=== PATIENT | female | born 1980 | race Caucasian/White ===

== ENCOUNTER 2024-01-08 12:06 | Emergency (ER) | payer BC, SELFPAY ==
[2024-01-08 12:09] VITALS: BP 143/87
[2024-01-08 12:25] LABS: % Basophils 0.5 % (0-2); % Immature Granulocytes 0.4 % (0-0.5); % Lymphocytes 8.9 % (20.5-51.1); % Neutrophils 86.2 % (42.2-75.2); Absolute Basophils 0.1 10^3/uL (0-0.2); Absolute Monocytes 0.4 10^3/uL (0.1-0.6); Absolute Neutrophils 9.2 10^3/uL (1.4-6.5); Hemoglobin 15.1 g/dL (12.0-16.0); Mean Corp Hgb Conc. 36.8 g/dL (33.0-37.0); Mean Corpuscular Hgb 30.6 pg (27.0-31.0); Mean Corpuscular Volume 83.2 fL (81.0-99.0); Mean Platelet Volume 10.8 fL (7.4-10.4); Nucleated Red Blood Cells % 0 %; Platelet Count 191 10^3/uL (130-400); Red Blood Cell Count 4.93 10^6/uL (4.20-5.40); Red Cell Dist. Width 12.2 % (11.5-14.5); White Blood Cell Count 10.7 10^3/uL (4.8-10.8)
[2024-01-08 12:35] LABS: ALT (SGPT) 28 U/L (0-35); AST (SGOT) 41 U/L (14-36); Albumin 4.6 g/dl (3.5-5.0); Alkaline Phosphatase 56 U/L (38-126); Blood Urea Nitrogen 15 mg/dl (7-17); Calcium 9.3 mg/dl (8.4-10.2); Carbon Dioxide 25 mmol/L (22-30); Chloride 105 mmol/L (98-107); Glucose 102 mg/dl (70-99); Sodium 136 mmol/L (135-145); Total Bilirubin 0.8 mg/dl (0.2-1.3); Total Protein 6.8 g/dl (6.3-8.2); eGFR > 60.00
--- NOTE | 2024-01-08 14:38 | ED.GENMED ---
History of Present Illness
General
Chief Complaint: Fainting/Passed Out
Source: patient
Exam Limitations: none
Time Seen by Provider: 01/08/24 13:51
Nursing documentation reviewed up to this point in time: agreed with
Travel History
Have you had any contact with someone who has COVID-19?: No
Do you have any symptoms of coronavirus? Fever > 100 degrees, chills, cough, shortness of breath, sore throat, loss of taste or smell, muscle aches, or headache?: No
History of Present Illness
History of Present Illness:
43-year-old female presents to the ER for evaluation of syncopal episode. Patient reports this morning at 5 AM she sat up in bed felt a tingling sensation in her head and then did not feel right. Her partner reports she set up and stated that she
did not feel well then leaned forward and became unresponsive. She was breathing but not responding. Partner reports patient did not have a seizure but her face looked like it was in pain. This lasted about 50 seconds. Patient responds after 50
seconds into breakdowns or cold sweat.
She denies any seizure activity.
Patient reports she has a history of syncope in the past she has been evaluated by neurology she was told that she was not having seizures. She does describe EEG was done. Patient reports has been here previously in the past for syncope. Review
of records patient had a brain MRI dating back to 2014 for syncope concern for seizure.
Pt reports she also has had full workup by cardiology and even had a Holter monitor with normal workup
Patient was just here December 21 several weeks ago for syncopal episode.
Past History
Past History
ED Past Medical History: Other (Hepatitis C)
ED Past Surgical History: Other; Negative Cardiac
Social History
Tobacco: Non-smoker
Drug: Former user
Personal:
Living: with family
Employment: Employed
Family History
Family History: Negative Sudden
Review of Systems
Review of Systems
Allergies reviewed?: Yes
All Other Systems: ROS reviewed and negative except as documented in HPI and ROS
Constitutional: Reports no symptoms
Cardiac: Reports syncope; Denies diaphoresis
ABD/GI: Reports no symptoms
: Reports no symptoms
Musculoskeletal: Reports no symptoms
Skin: Reports no symptoms
Neurological: Reports no symptoms
Psychiatric: Reports no symptoms
Phy Exam
General Physical Exam
General Presentation: no apparent distress
General age: appears stated age
General Skin: warm and dry
General Habitus: normal
General Mental: alert
General Hydration: appears well hydrated
Cardiovascular Exam
Cardiovascular Exam: regular rate/rhythm, no murmur and normal peripheral pulses
Pulmonary Exam
Pulmonary Exam: lungs clear and no respiratory distress
Neurological Exam
Neurological Exam: alert, oriented x3, no motor deficits, normal reflexs and speech normal
[place] Coma Scale
Eye Opening: Spontaneous
Verbal Response: Oriented
Motor Response: Obeys Commands
GCS Total Score: 15
Musculoskeletal Exam
Musculoskeletal Exam: full ROM
Skin Exam
Skin Exam: normal color and warm/dry
Psychiatric Exam
Psychiatric Exam: normal mood/affect
Course
Orders/Labs/Results
Orders:
Orders
01/08/24 12:11
Electrocardiogram (*1) Urgent
Reason for Study: Syncope
EKG- Treatment ONCE
01/08/24 12:17
CBC/With Diff [Complete Blood Count/With Diff] Urgent
Comprehensive Metabolic Panel Urgent
HCG, Serum Qualitative Screen Urgent
01/08/24 14:20
Add On- LAB Urgent
Tests Added?: serum hcg qualitative
01/08/24 14:43
Orthostatic VS- Treatment ONCE
01/08/24 16:05
CT Head W/o Iv Contrast Urgent
Comment:
Reason For Exam: syncope
Abnormal Lab Results
01/08/24
12:17
MPV 10.8 H fL
(7.4-10.4)
Absolute Neuts (auto) 9.2 H 10^3/uL
(1.4-6.5)
Absolute Lymphs (auto) 1.0 L 10^3/uL
(1.2-3.4)
Neutrophils % 86.2 H %
(42.2-75.2)
Lymphocytes % 8.9 L %
(20.5-51.1)
Glucose 102 H mg/dl
(70-99)
AST 41 H U/L
(14-36)
01/08/24 12:17
01/08/24 12:17
Vital Signs
Initial and Last Documented VS:
Initial Vital Signs
Temp Pulse Resp BP Pulse Ox
98.2 F 71 18 143/87 98
01/08/24 12:09 01/08/24 12:09 01/08/24 12:09 01/08/24 12:09 01/08/24 12:09
Last Documented Vital Signs
Temp Pulse Resp BP Pulse Ox
98.2 F 75 18 110/78 99
01/08/24 12:09 01/08/24 18:42 01/08/24 12:09 01/08/24 18:42 01/08/24 18:42
MDM/Problems Addressed
Differential Diagnosis Includes:
not limited to seizure, syncope
MDM/Problems Addressed:
Patient is a 43-year-old female who has had history of syncope for years. Patient was evaluated by neurology as well as cardiology. Patient presented today for an episode of syncope witnessed by partner. This lasted for 50 seconds. This happened
earlier this morning patient felt that she had to lay in bed after episode. Partner did drive patient here to the ER. She presents awake alert no acute distress stable vital signs nontachypneic nontachycardic afebrile nonhypoxic with sorry normal
labs.
Patient is requesting CAT scan. Patient was seen here for similar episode December 12 did not have imaging at that time will CT however plan for discharge home discussed still close outpatient follow with neurology for continued evaluation.
Patient last had echo in 2014 will DC back to cardiology as well. I did review this echo which was unremarkable
*Radiology
Radiology exam reviewed: radiology read reviewed (Verbally reported via [place] text no significant interval change MRI more sensitive to compare previous findings in 2015)
*Pulse Oximetry
Patient hypoxic: no
*EKG
Interpreted by ED Provider?: Yes
Interpretation: normal
Heart Rate: 63
Rate: normal
Rhythm: sinus
Ischemia: no ischemia
*Critical Care Note
Total Time (30-74mins, 75-104mins- exclusive of procedures): Not Applicable
ED Attending Note
-
Portions of this chart may have been created with voice recognition software.� Occasional wrong word or��sound alike� substitutions may have occurred due to the inherent limitations of voice recognition software.
Discharge Plan
Departure
Patient Disposition: Home (Routine Discharge)
Date of Disposition: 01/08/24
Time of Disposition: 18:33
Patient with high blood pressure during this ER visit?: Yes
Condition: Fair
Covid-19: Not Applicable
Discharge Problem:
Syncope
Instructions: Syncope (Fainting) (DC), BLOOD PRESSURE
Prescriptions:
No Action
No Current Medications
0
Referrals:
Elgin Sherwood MD [Active] -
Mehrdad Perez DO [Active] -
Leighton Arredondo MD [Family Provider] -
Activity Restrictions/Additional Instructions:
As discussed please follow-up with your family doctor but again neurology and cardiology for continued evaluation of syncope. Stay well-hydrated and return if any worsening of symptoms
Interventions
Interventions:
*Risk Screen - Suicide Last Done: 01/08/24 14:38
*General Assessment Last Done: 01/08/24 14:38
*Neglect/Abuse Screening Last Done: 01/08/24 14:38
ED- Fall Risk Assessment Last Done: 01/08/24 14:38
*ED COVID-19 Vaccine History Last Done: 01/08/24 14:38
*Nursing Disposition Last Done: 01/08/24 18:42
ED- Neurological Assessment Last Done: 01/08/24 14:38
Discharge Date and Time
Discharge Date/Time: 01/08/24 18:43
[2024-01-08 14:42] VITALS: BP 106/81; BP 110/74; BP 113/74; PULSE 59; PULSE 61
[2024-01-08 14:52] LABS: HCG, Serum Qualitative Screen Negative
[2024-01-08 16:13] VITALS: BP 112/69
[2024-01-08 18:42] VITALS: BP 110/78
== END 2024-01-08 18:43 | disposition home or self-care (01) ==
LOC: EMR 12:06
PROVIDERS: EMERGENCY PHYSICIAN Emergency Medicine; FAMILY PHYSICIAN Family Medicine
DX: R55 Syncope and collapse (principal); R03.0 Elevated blood-pressure reading, without diagnosis of hypertension; Z86.19 Personal history of other infectious and parasitic diseases; Z86.14 Personal history of Methicillin resistant Staphylococcus aureus infection; Z88.8 Allergy status to other drugs, medicaments and biological substances
CPT/HCPCS: 99284; 70450; 80053; 84703; 85025; 93005

== ENCOUNTER → 2024-04-03 19:43 | Outpatient (REF) | payer BC, SELFPAY | LOC: WDC 19:43 | PROVIDERS: ATTENDING PHYSICIAN Family Medicine | DX: Z12.31 Encounter for screening mammogram for malignant neoplasm of breast (principal) | CPT/HCPCS: 77063; 77067 ==

== ENCOUNTER 2024-04-20 05:19 | Emergency (ER) | payer BC, SELFPAY ==
[2024-04-20 05:20] VITALS: BMI 29.3
[2024-04-20 05:31] VITALS: BP 133/79
[2024-04-20 06:21] VITALS: BP 106/73
[2024-04-20 06:49] LABS: % Basophils 0.4 % (0-2); % Eosinophils 1.1 % (0-6); % Immature Granulocytes 0.6 % (0-0.5); % Lymphocytes 9.6 % (20.5-51.1); % Monocytes 6.8 % (1.7-9.3); % Neutrophils 81.5 % (42.2-75.2); Absolute Eosinophils 0.1 10^3/uL (0-0.7); Absolute Immature Granulocytes 0.1 10^3/uL (0-0.05); Absolute Lymphocytes 0.9 10^3/uL (1.2-3.4); Absolute Monocytes 0.6 10^3/uL (0.1-0.6); Absolute Neutrophils 7.3 10^3/uL (1.4-6.5); Hematocrit 36.5 % (37.0-47.0); Hemoglobin 12.9 g/dL (12.0-16.0); Mean Corp Hgb Conc. 35.3 g/dL (33.0-37.0); Mean Corpuscular Hgb 30.6 pg (27.0-31.0); Mean Corpuscular Volume 86.5 fL (81.0-99.0); Mean Platelet Volume 10.7 fL (7.4-10.4); Nucleated Red Blood Cells % 0 %; Platelet Count 168 10^3/uL (130-400); Red Blood Cell Count 4.22 10^6/uL (4.20-5.40); Red Cell Dist. Width 12.4 % (11.5-14.5); White Blood Cell Count 8.9 10^3/uL (4.8-10.8)
[2024-04-20 07:00] VITALS: BP 101/74
[2024-04-20 07:08] LABS: HCG, Serum Qualitative Screen Negative
[2024-04-20 07:15] VITALS: BP 115/81
[2024-04-20] MEDS: NSS 1000 IV (07:16)
[2024-04-20 07:17] LABS: Troponin I < 0.012 ng/ml
[2024-04-20 07:19] LABS: ALT (SGPT) 25 U/L (0-35); AST (SGOT) 39 U/L (14-36); Albumin 3.8 g/dl (3.5-5.0); Alkaline Phosphatase 50 U/L (38-126); Blood Urea Nitrogen 25 mg/dl (7-17); Calcium 9.1 mg/dl (8.4-10.2); Carbon Dioxide 24 mmol/L (22-30); Chloride 106 mmol/L (98-107); Estimated Creatinine Clearance 85 ml/min; Glucose 96 mg/dl (70-99); Potassium 4.4 mmol/L (3.5-5.1); Sodium 137 mmol/L (135-145); Total Bilirubin 0.7 mg/dl (0.2-1.3); Total Protein 5.8 g/dl (6.3-8.2); eGFR > 60.00
[2024-04-20 07:38] LABS: TSH Reflex To Free T4 5.62 uIU/ml (0.47-4.68)
[2024-04-20 07:42] LABS: D-Dimer 0.85 ug/mlFEU (0.00-0.50)
--- NOTE | 2024-04-20 07:49 | EDRN ---
D-dimer came back elevated, this RN notified Dr. Diaz, the pt stated to this RN that she has a neurology appt that she needs to go to at 0845 and that she wants to leave now, the pt requested that her PIV be taken out, this RN removed PIV
--- NOTE | 2024-04-20 07:55 | EDRN ---
the pt approached this RN at the nurses station with her and stated, 'I am just going to get going, i have had the discharge paper work before so i'm fine thank you for the care', this RN notified Dr. Gonzalez
--- NOTE | 2024-04-20 08:32 | ED.GENMED ---
History of Present Illness
General
Chief Complaint: Fainting/Passed Out
Source: patient, records and family
Exam Limitations: none
Time Seen by Provider: 04/20/24 06:22
Nursing documentation reviewed up to this point in time: agreed with
Travel History
Have you had any contact with someone who has COVID-19?: No
Do you have any symptoms of coronavirus? Fever > 100 degrees, chills, cough, shortness of breath, sore throat, loss of taste or smell, muscle aches, or headache?: No
History of Present Illness
History of Present Illness:
Patient is a 43-year-old female who presents after syncopal episode today. Patient has had recurrent syncope with episodes recently in November and December. Patient has an appointment with neurology at 845 this morning. Patient states that she
woke this morning and had generalized abdominal pain and she went into the bathroom sat and started to urinate and then passed out. Patient was incontinent further of urine. After coming to the patient did have a large bowel movement. Patient
admits to diaphoresis and nausea with the episode but has not had any recent nausea, vomiting or diarrhea. Patient's period was about a year ago. Patient denies any weight changes, skin or hair changes. Patient denies any recent fevers chills
illnesses or injuries. Patient denies any upper respiratory type symptoms. Patient denied any chest pain, shortness of breath or palpitations. Patient's had an echo, Holter, EEG and MRI all of which have been normal.
Past History
Past History
ED Past Medical History: Other (Hepatitis C, recurrent syncope)
ED Past Surgical History: Other; Negative Cardiac
Social History
Tobacco: Non-smoker
Drug: Former user
Personal:
Living: with family
Employment: Employed
Family History
Family History: Negative Sudden
Review of Systems
Review of Systems
All Other Systems: ROS reviewed and negative except as documented in HPI and ROS
Constitutional: Reports no symptoms
EENT: Reports no symptoms
Respiratory: Reports no symptoms
Cardiac: Reports diaphoresis and syncope; Denies chest pain or palpitations
ABD/GI: Reports abdominal pain and nausea; Denies vomiting, diarrhea, constipated, bloody stools, black stools or anorexia
: Reports no symptoms
Musculoskeletal: Reports no symptoms
Skin: Reports no symptoms
Neurological: Reports no symptoms
Hematologic/Lymphatic: Reports no symptoms
Psychiatric: Reports no symptoms
Phy Exam
Physical Exam
Physical Exam:
Physical Exam
General: No apparent distress, alert and appropriate, well nourished, mildly dry mucous membranes
HENT: Normocephalic, supple with no lymphadenopathy, no thyromegaly
Eyes: Clear sclera, conjuctiva without injection
Heart: Regular rhythm and rate. No S3, S4. No murmur. No NVD, bruit
Lungs: No respiratory distress, no stridor, lung sounds clear and equal bilaterally
Abdomen: Soft, nontender, no organomegaly, no CVA tenderness, BS good
Neuro: Alert and oriented x 3, CN II - XII intact, no motor focality, no cerebellar dysfunction
Skin: no rash
Psychiatric: well kept. interactive and cooperative
Extremities: No edema, cyanosis, tenderness, Good and equal peripheral pulses.
Course
Orders/Labs/Results
Orders:
Orders
04/20/24 05:45
EKG [Electrocardiogram (*1)] Urgent
Reason for Study: Syncope
04/20/24 05:46
EKG- Treatment ONCE
04/20/24 06:24
Test Result ONCE
04/20/24 06:30
Complete Blood Count/With Diff Urgent
Comprehensive Metabolic Panel Urgent
D-Dimer Urgent
Free T4 Urgent
HCG, Serum Qualitative Screen Urgent
TSH Reflex To Free T4 Urgent
Troponin I Urgent
04/20/24 06:43
0.9% Sodium Chloride 1000 ml [Nss] 1,000 ml IV BOLUS
04/20/24 07:16
0.9% Sodium Chloride 1000 ml [Nss] 1,000 ml IV BOLUS
04/20/24 07:24
Ondansetron Injectable [Zofran] 4 mg IV NOW STA
Abnormal Lab Results
04/20/24
06:30
Hct 36.5 L %
(37.0-47.0)
MPV 10.7 H fL
(7.4-10.4)
Abs Immat Gran (auto) 0.1 H 10^3/uL
(0-0.05)
Absolute Neuts (auto) 7.3 H 10^3/uL
(1.4-6.5)
Absolute Lymphs (auto) 0.9 L 10^3/uL
(1.2-3.4)
Immature Gran % 0.6 H %
(0-0.5)
Neutrophils % 81.5 H %
(42.2-75.2)
Lymphocytes % 9.6 L %
(20.5-51.1)
D-Dimer 0.85 H ug/mlFEU
(0.00-0.50)
BUN 25 H mg/dl
(7-17)
AST 39 H U/L
(14-36)
Total Protein 5.8 L g/dl
(6.3-8.2)
TSH (Reflex) 5.62 H uIU/ml
(0.47-4.68)
04/20/24 06:30
04/20/24 06:30
Vital Signs
Initial and Last Documented VS:
Initial Vital Signs
Pulse Resp Pulse Ox
54 18 98
04/20/24 05:22 04/20/24 05:22 04/20/24 05:22
Last Documented Vital Signs
Temp Pulse Resp BP Pulse Ox
97.8 F 66 19 101/74 97
04/20/24 05:31 04/20/24 07:00 04/20/24 07:00 04/20/24 07:00 04/20/24 07:00
*Pulse Oximetry
Patient hypoxic: no
*EKG
Interpreted by ED Provider?: Yes
EKG Intrepretation Date: 04/20/24
EKG Intrepretation Time: 08:36
Interpretation: normal
Comparison EKG: no changes
Heart Rate: 47
Rate: normal
Rhythm: sinus
[place]: normal axis
Interval: normal interval
QRS Pattern: normal QRS
Ischemia: no ischemia
*Assistant Executive Housekeeper Interpretation
Rate: bradycardiac
Interpretation: normal
Heart Rate: 50
Rhythm: sinus
*Critical Care Note
Total Time (30-74mins, 75-104mins- exclusive of procedures): Not Applicable
Update Note
Update Note:
Unfortunately patient left before her lab results were back or could be discussed. Patient left an hour before her appointment at the hospital was actually to be. Patient's TSH is elevated but her T4 is normal. More worrisome is the fact that her
D-dimer is elevated. Patient also appears to be somewhat dry. Patient was given a liter of fluid but only got 500 to 800 cc. Patient was still feeling nauseous so we did give her Zofran. Will try to contact the patient for follow-up.
ED Attending Note
-
Portions of this chart may have been created with voice recognition software.� Occasional wrong word or��sound alike� substitutions may have occurred due to the inherent limitations of voice recognition software.
Discharge Plan
Departure
Patient Disposition: Elopement
Date of Disposition: 04/20/24
Time of Disposition: 08:38
Patient with high blood pressure during this ER visit?: No
Condition: Good
Covid-19: Not Applicable
Discharge Problem:
Syncope
Prescriptions:
No Action
No Current Medications
0
Referrals:
Mini Vicente DO [Family Provider] -
Interventions
Interventions:
*Risk Screen - Suicide Last Done: 04/20/24 05:22
*General Assessment Last Done: 04/20/24 05:22
*Neglect/Abuse Screening Last Done: 04/20/24 05:39
ED- Cardiac Assessment Last Done: 04/20/24 05:39
ED- Neurological Assessment Last Done: 04/20/24 05:39
Discharge Date and Time
Print Language: [place]
== END 2024-04-20 07:55 | disposition left against medical advice (07) ==
LOC: EMR 05:19
PROVIDERS: EMERGENCY PHYSICIAN Emergency Medicine; FAMILY PHYSICIAN Family Medicine
DX: R55 Syncope and collapse (principal)
CPT/HCPCS: 99284; 96360; 80053; 84439; 84443; 84484; 84703; 85025; 85379; 93005

== ENCOUNTER 2024-04-24 12:45 | Emergency (ER) | payer BC, SELFPAY ==
[2024-04-24 12:51] VITALS: BP 131/60
[2024-04-24 15:33] VITALS: BP 117/79
--- NOTE | 2024-04-24 15:49 | ED.GENMED ---
History of Present Illness
General
Chief Complaint: Abnormal Lab Value
Source: patient and records
Exam Limitations: none
Time Seen by Provider: 04/24/24 15:33
Nursing documentation reviewed up to this point in time: agreed with
Travel History
Have you had any contact with someone who has COVID-19?: No
Do you have any symptoms of coronavirus? Fever > 100 degrees, chills, cough, shortness of breath, sore throat, loss of taste or smell, muscle aches, or headache?: No
History of Present Illness
History of Present Illness:
43-year-old female presents emergency room complaining of feeling tired, syncope episode on Tuesday. She had a neurology appointment on Tuesday the same day that she had syncope. This was follow-up for her prior syncope. She had blood work pending
when she left to go to the appointment. Her D-dimer was elevated at 0.85. She denies chest pain or shortness of breath at this time, but states she did have some shortness of breath over the weekend. She thinks that it was due to anxiety.
Past History
Past History
ED Past Medical History: Other (Hepatitis C, recurrent syncope)
ED Past Surgical History: Gynecological (Ectopic ); Negative Cardiac
Social History
Tobacco: Non-smoker
Drug: Former user
Personal:
Living: with family
Employment: Employed
Family History
Family History: Negative Sudden
Review of Systems
Review of Systems
Allergies reviewed?: Yes
All Other Systems: Not applicable
Constitutional: Reports no symptoms
EENT: Reports no symptoms
Respiratory: Reports trouble breathing
Cardiac: Reports syncope
ABD/GI: Reports no symptoms
: Reports no symptoms
Musculoskeletal: Reports no symptoms
Skin: Reports no symptoms
Neurological: Reports no symptoms
Endocrine: Reports no symptoms
Hematologic/Lymphatic: Reports no symptoms
Phy Exam
Physical Exam
Physical Exam:
Physical Exam
General: no apparent distress, not acutely ill
Neck: supple. no meningeal signs. normal posterior pharynx
Heart: s1/s2 regular rate and rhythm, no murmur. equal radial
pulses.
HEENT: Pupils equal round reactive to light, EOMI
Lungs: no acute respiratory distress. clear bilaterally
Abdomen: normal bowel sounds. not tender. no CVAT
Neuro: alert and oriented. no focal neurological deficits cranial nerves II through XII intact
Skin: no rash
Psychiatric: well kept. interactive and cooperative
Extremities: no edema. no calf tenderness. negative homans. good distal pulses
Course
Orders/Labs/Results
Orders:
Orders
04/24/24 15:38
CT Chest Pe Study Urgent
Comment:
Reason For Exam: syncope, elevated ddimer
04/24/24 15:39
Test Result ONCE
04/24/24 15:48
Complete Blood Count/With Diff Urgent
Comprehensive Metabolic Panel Urgent
HCG, Serum Qualitative Screen Urgent
Troponin I Urgent
04/24/24 18:20
0.9% Sodium Chloride 1000 ml [Nss] 1,000 ml IV BOLUS
04/24/24 18:28
Troponin I Urgent
04/24/24 18:29
ECG [Electrocardiogram (*1)] Urgent
Reason for Study: Other
Other Reason for Exam: repeat troponin
EKG- Treatment ONCE
Abnormal Lab Results
04/24/24
15:48
RBC 5.47 H 10^6/uL
(4.20-5.40)
Hgb 16.6 H D g/dL
(12.0-16.0)
Hct 47.5 H %
(37.0-47.0)
MPV 10.9 H fL
(7.4-10.4)
Abs Immat Gran (auto) 0.1 H 10^3/uL
(0-0.05)
Absolute Neuts (auto) 7.6 H 10^3/uL
(1.4-6.5)
Lymphocytes % 19.6 L %
(20.5-51.1)
Calcium 10.3 H mg/dl
(8.4-10.2)
AST 46 H U/L
(14-36)
ALT 47 H U/L
(0-35)
Total Protein 8.5 H g/dl
(6.3-8.2)
Albumin 5.5 H g/dl
(3.5-5.0)
04/24/24 15:48
04/24/24 15:48
Vital Signs
Initial and Last Documented VS:
Initial Vital Signs
Temp Pulse Resp BP Pulse Ox
97.8 F 65 20 131/60 97
04/24/24 12:51 04/24/24 12:51 04/24/24 12:51 04/24/24 12:51 04/24/24 12:51
Last Documented Vital Signs
Temp Pulse Resp BP Pulse Ox
97.8 F 63 18 103/64 99
04/24/24 12:51 04/24/24 18:11 04/24/24 18:11 04/24/24 17:00 04/24/24 18:11
MDM/Problems Addressed
Differential Diagnosis Includes:
Pulmonary embolism, hypovolemia
MDM/Problems Addressed:
43-year-old female with syncope episode 5 days ago. Mild increase in hemoglobin, negative serial troponins. CT negative for PE. Stable for discharge. Follow-up with cardiology.
Chronic conditions affecting care: Psychiatric illness
Acute Exacerbation and/or Progression of Chronic Illness: Psychiatric illness
*Radiology
Radiology exam reviewed: radiology read reviewed (CT chest no signs of PE, no acute findings)
*Pulse Oximetry
Patient hypoxic: no
*EKG
Interpreted by ED Provider?: Yes
EKG Intrepretation Date: 04/24/24
EKG Intrepretation Time: 18:40
Interpretation: abnormal
Comparison EKG: no changes
Heart Rate: 57
Rate: bradycardiac
Rhythm: sinus
[place]: normal axis
Interval: normal interval
QRS Pattern: normal QRS
Ischemia: no ischemia
*Trapeze Artist Interpretation
Rate: bradycardiac
Interpretation: abnormal
Heart Rate: 59
Rhythm: sinus
*Critical Care Note
Total Time (30-74mins, 75-104mins- exclusive of procedures): Not Applicable
Data Reviewed
Review of Other/Old Records Reveals: Labs (ddimer 0.85 04/20/24)
Source: records
Patient Management
Social determinants of health affecting care: Living situation
Escalation/DeEscalation of care consider admission/obs:
admit not indicated
ED Attending Note
-
Portions of this chart may have been created with voice recognition software.� Occasional wrong word or��sound alike� substitutions may have occurred due to the inherent limitations of voice recognition software.
Discharge Plan
Departure
Patient Disposition: Home (Routine Discharge)
Date of Disposition: 04/24/24
Time of Disposition: 19:35
Patient with high blood pressure during this ER visit?: No
Condition: Good
Discharge Problem:
Syncope
Instructions: Dehydration, Adult (DC), Fainting, Adult ED
Prescriptions:
No Action
No Current Medications
0
Referrals:
Luigi Ravi MD [Active] - Call in 1-3 days for appt
Mini Vicente DO [Family Provider] - Call in 1-3 days for appt
Interventions
Interventions:
*Risk Screen - Suicide Last Done: 04/24/24 15:34
*General Assessment Last Done: 04/24/24 15:34
*Neglect/Abuse Screening Last Done: 04/24/24 15:34
ED- Fall Risk Assessment Last Done: 04/24/24 15:34
*ED COVID-19 Vaccine History Last Done: 04/24/24 15:34
Discharge Date and Time
Print Language: [id number]
[2024-04-24 16:00] VITALS: BP 113/68
[2024-04-24 16:00] LABS: % Basophils 0.7 % (0-2); % Eosinophils 1.5 % (0-6); % Immature Granulocytes 0.5 % (0-0.5); % Lymphocytes 19.6 % (20.5-51.1); % Monocytes 5.5 % (1.7-9.3); % Neutrophils 72.2 % (42.2-75.2); Absolute Basophils 0.1 10^3/uL (0-0.2); Absolute Eosinophils 0.2 10^3/uL (0-0.7); Absolute Immature Granulocytes 0.1 10^3/uL (0-0.05); Absolute Lymphocytes 2.1 10^3/uL (1.2-3.4); Absolute Monocytes 0.6 10^3/uL (0.1-0.6); Absolute Neutrophils 7.6 10^3/uL (1.4-6.5); Hematocrit 47.5 % (37.0-47.0); Hemoglobin 16.6 g/dL (12.0-16.0); Mean Corp Hgb Conc. 34.9 g/dL (33.0-37.0); Mean Corpuscular Hgb 30.3 pg (27.0-31.0); Mean Corpuscular Volume 86.8 fL (81.0-99.0); Mean Platelet Volume 10.9 fL (7.4-10.4); Nucleated Red Blood Cells % 0 %; Platelet Count 287 10^3/uL (130-400); Red Blood Cell Count 5.47 10^6/uL (4.20-5.40); Red Cell Dist. Width 12.2 % (11.5-14.5); White Blood Cell Count 10.6 10^3/uL (4.8-10.8)
[2024-04-24 16:12] LABS: ALT (SGPT) 47 U/L (0-35); AST (SGOT) 46 U/L (14-36); Albumin 5.5 g/dl (3.5-5.0); Alkaline Phosphatase 68 U/L (38-126); Blood Urea Nitrogen 15 mg/dl (7-17); Calcium 10.3 mg/dl (8.4-10.2); Carbon Dioxide 28 mmol/L (22-30); Chloride 99 mmol/L (98-107); Glucose 83 mg/dl (70-99); Potassium 4.2 mmol/L (3.5-5.1); Sodium 139 mmol/L (135-145); Total Bilirubin 0.6 mg/dl (0.2-1.3); Total Protein 8.5 g/dl (6.3-8.2); eGFR > 60.00
[2024-04-24 16:14] LABS: HCG, Serum Qualitative Screen Negative
[2024-04-24 16:19] LABS: Troponin I 0.014 ng/ml
[2024-04-24 17:00] VITALS: BP 103/64
[2024-04-24 18:14] VITALS: BP 131/94
[2024-04-24] MEDS: NSS 1000 IV (18:28)
[2024-04-24 19:00] VITALS: BP 104/78
[2024-04-24 19:09] LABS: Troponin I < 0.012 ng/ml
== END 2024-04-24 19:56 | disposition home or self-care (01) ==
LOC: EMR 12:45
PROVIDERS: EMERGENCY PHYSICIAN Emergency Medicine; FAMILY PHYSICIAN Family Medicine
DX: R55 Syncope and collapse (principal); R06.02 Shortness of breath; F41.9 Anxiety disorder, unspecified; F32.A Depression, unspecified; Z86.19 Personal history of other infectious and parasitic diseases; Z86.14 Personal history of Methicillin resistant Staphylococcus aureus infection; Z88.8 Allergy status to other drugs, medicaments and biological substances
CPT/HCPCS: 99285; 96360; 71275; 80053; 84484; 84703; 85025; 93005; Q9967

== ENCOUNTER → 2024-05-07 08:56 | Outpatient (REF) | payer BC, SELFPAY | LOC: EEG 08:56 | PROVIDERS: ATTENDING PHYSICIAN Psychiatry & Neurology Neurology; FAMILY PHYSICIAN Family Medicine | DX: R55 Syncope and collapse (principal) | CPT/HCPCS: 95708 ==

== ENCOUNTER → 2025-04-18 16:57 | Outpatient (REF) | payer BC, SELFPAY | LOC: WDC 16:57 | PROVIDERS: ATTENDING PHYSICIAN Family Medicine | DX: Z12.31 Encounter for screening mammogram for malignant neoplasm of breast (principal) | CPT/HCPCS: 77063; 77067 ==